=== PATIENT | male | born 1995 | race Caucasian/White ===

== ENCOUNTER 2016-10-06 19:14 | Emergency (ER) | payer OTHER ==
--- NOTE | 2016-10-06 19:20 | PDOC ---
History of Present Illness - General History Source: Patient Exam Limitations: No Limitations - History of Present Illness Initial Comments: 10/06/16 19:24 Patient is a 21 year old male with no pmhx who presents to the ED with left pinky finger injury. Patient states that he was playing basketball as another player his his left hand. He reports left pinky finger pain and difficulty bending the digit. He denies any head trauma, fall or LOC. PAST MEDICAL HISTORY: no significant history PAST SURGICAL HISTORY: no significant history FAMILY HISTORY: no pertinent history SOCIAL HISTORY: Pt lives with family and is employed. MEDICATIONS: reviewed ALLERGIES: As per nursing notes General: No fevers or chills, no weakness, no weight loss HEENT: No change in vision. No sore throat, No ear pain CardioVascular: No chest pain or shortness of breath Respiratory:No cough, or wheezing. Gastrointestinal: no nausea, vomiting, diarrhea or constipation, No rectal bleeding Genitourinary: No dysuria, hematuria, or frequency Musculoskeletal: +left pinky finger pain. No muscle pain or swelling Neurologic: No headache, vertigo, dizziness or loss of consciousness Psychiatric: nor depression Skin: No rashes or easy bruising Endocrine: no increased thirst or abnormal weight change Allergic: no skin or latex allergy All other systems reviewed and normal GENERAL: The patient is awake, alert, and fully oriented, in no acute distress. HEAD: Normal with no signs of trauma. EYES: Pupils equal, round and reactive to light, extraocular movements intact, sclera anicteric, conjunctiva clear. EXTREMITIES: (+)tenderness and swelling over the left pinky PIP joint with questionable deformity, patient is unable to flex the PIP joint secondary to pain and possible deformity, +Neurovascularly intact. NEUROLOGICAL: Normal speech, normal gait. PSYCH: Normal mood, normal affect. SKIN: Warm, Dry, normal turgor, no rashes or lesions noted. <Shelia Talamantes - Last Filed: 10/06/16 19:24> - General History Source: Patient Exam Limitations: No Limitations - History of Present Illness Initial Comments: 10/06/16 20:03 A portion of this note was documented by scribe services under my direction. I have reviewed the details of the note, within reason, and agree with the documentation. The case summary and management plan written by me. X-rays dislocation of PIP joint fifth finger Procedure note: Manual reduction dislocated PIP joint fifth finger left hand Finger was anesthetized via digital ring block using 1% lidocaine no epinephrine total cc approximately 4 mL Finger was relocated without difficulty Post reduction film shows good reduction of the dislocation Assessment and plan: This is a 21-year-old male comes in with injury to his left fifth finger status post injuring it while playing a basketball game. Patient had a dislocation of the PIP joint that was reduced manually post digital ring block. Splint was applied and patient was discharged. Patient was given referral to [facility] for follow-up. <Vasiliy Evangelista I - Last Filed: 10/06/16 20:08> - General Chief Complaint: Injury Stated Complaint: LEFT PINKY INJURY Time Seen by Provider: 10/06/16 19:20 Past History <Shelia Talamantes - Last Filed: 10/06/16 19:24> - Past Medical History Asthma: Yes - Psycho/Social/Smoking Cessation Hx Anxiety: No Suicidal Ideation: No Smoking History: Never smoked Have you smoked in the past 12 months: No Hx Alcohol Use: No Drug/Substance Use Hx: No Substance Use Type: None <Vasiliy Evangelista I - Last Filed: 10/06/16 20:08> - Past Medical History Allergies/Adverse Reactions: Allergies Allergy/AdvReac Type Severity Reaction Status Date / Time No Known Allergies Allergy Verified 10/06/16 19:19 Home Medications: Ambulatory Orders NK [No Known Home Medication] 10/06/16 *DC/Admit/Observation/Transfer - Attestations Scribe Attestion: 10/06/16 19:25 Documentation prepared by MAY Ruiz, acting as medical staff services manager for Vasiliy Evangelista MD. <Shelia Talamantes - Last Filed: 10/06/16 19:24> - Discharge Dispostion Admit: No <Vasiliy Evangelista I - Last Filed: 10/06/16 20:08> Diagnosis at time of Disposition: Dislocation of proximal interphalangeal joint of left little finger Qualifiers: Encounter type: initial encounter Qualified Code(s): S63.287A - Dislocation of proximal interphalangeal joint of left little finger, initial encounter - Discharge Dispostion Disposition: HOME Condition at time of disposition: Stable - Patient Instructions Additional Instructions: Tylenol or Motrin as needed for pain. Wear the splint until you are seen by an orthopedist. Make sure you keep the splint dry if he get it wet taken off dry with a hairdryer and put it back on. If you need an orthopedist call Dr. Rand at [phone] in the morning for an appointment. Return to the emergency department immediately with ANY new, persistent or worsening symptoms. Continue any medications as previously prescribed by your physician. You should follow up with your primary doctor as soon as possible regarding today's emergency department visit. . Please make sure your doctor reviews the results of your emergency evaluation. Thank you for coming to the Emergency Department today for your care. It was a pleasure to see you today. Please note that your evaluation is INCOMPLETE until you follow-up with your doctor.
[2016-10-06] MEDS ORDERED: IBUPROFEN 400 MG TABLET (FP) PO ONE ×2 (19:22→19:26)
[2016-10-06 19:27] VITALS: BP 126/80; PULSE 76; TEMP 98.5; BMI 29.8
[2016-10-06] MEDS ORDERED: LIDOCAINE HCL 1%, 10 MG/ML (20ML VIAL) ONE (19:47)
== END 2016-10-06 20:31 | disposition home or self-care (01) ==
LOC: FER 19:14
PROC: 2W3KX1Z Immobilization of Left Finger using Splint (ICD-10-PCS; principal; 2016-10-06)
DX: S63.287A Dislocation of proximal interphalangeal joint of left little finger, initial encounter (principal); W51.XXXA Accidental striking against or bumped into by another person, initial encounter; Y93.67 Activity, basketball; Y92.310 Basketball court as the place of occurrence of the external cause; J45.909 Unspecified asthma, uncomplicated
CPT/HCPCS: 29130; 73140-TC-LT; 99282-25

== ENCOUNTER 2017-07-06 01:08 | Emergency (ER) | payer SELFPAY ==
[2017-07-06 01:13] VITALS: BP 125/76; PULSE 62; TEMP 98.4; BMI 29.1
--- NOTE | 2017-07-06 01:19 | PDOC ---
History of Present Illness - General Chief Complaint: Injury Stated Complaint: HIT RIGHT ELBOW ON TOWEL RACK Time Seen by Provider: 07/06/17 01:14 History Source: Patient Exam Limitations: No Limitations - History of Present Illness Initial Comments: 07/06/17 01:16 This is a 18-year-old male who comes in complaining of a laceration to his right elbow. Last immunization was 8 years ago. Patient is otherwise healthy. PAST MEDICAL HISTORY: no significant history PAST SURGICAL HISTORY: no significant history FAMILY HISTORY: no pertinant history SOCIAL HISTORY: Pt lives with family and is employed. MEDICATIONS: reviewed ALLERGIES: As per nursing notes Review of Systems General: No fevers or chills, no weakness, no weight loss HEENT: No change in vision. No sore throat,. No ear pain CardioVascular: No chest pain or shortness of breath Respiratory:No cough, or wheezing. Gastrointestinal: no nausea, vomitting, diarrhea or constipation, No rectal bleeding Genitourinary: No dysuria, hematuria, or frequency Musculoskeletal: No joint or muscle pain or swelling Neurologic: No headache, vertigo, dizziness or loss of consciousness Psychiatric: nor depression Skin: No rashes or easy bruising Endocrine: no increased thirst or abnormal weight change Allergic: no skin or latex allergy All other systems reviewed and normal GENERAL: The patient is awake, alert, and fully oriented, in no acute distress. HEAD: Normal with no signs of trauma. EYES: Pupils equal, round and reactive to light, extraocular movements intact, sclera anicteric, conjunctiva clear. EXTREMITIES: There is approximately 3 mm superficial laceration over the right elbow posteriorly neurovascular is intact NEUROLOGICAL: Normal speech, normal gait. grossly intact PSYCH: Normal mood, normal affect. SKIN: Warm, Dry, normal turgor, no rashes or lesions noted. Procedure note Dermabond repair of laceration Laceration cleaned and then closed with Dermabond patient tolerated well Past History - Past Medical History Allergies/Adverse Reactions: Allergies Allergy/AdvReac Type Severity Reaction Status Date / Time No Known Allergies Allergy Verified 07/06/17 01:09 Home Medications: Ambulatory Orders Albuterol Sulfate Inhaler - [Ventolin Hfa Inhaler -] 1 - 2 inh PO QID 07/06/17 Asthma: Yes COPD: No - Suicide/Smoking/Psychosocial Hx Smoking History: Never smoked Have you smoked in the past 12 months: No Information on smoking cessation initiated: No Hx Alcohol Use: No Drug/Substance Use Hx: No Substance Use Type: None *Physical Exam - Vital Signs Last Vital Signs Temp Pulse Resp BP Pulse Ox 98.4 F 62 17 125/76 100 07/06/17 01:09 07/06/17 01:07/06/17 01:07/06/17 01:07/06/17 01:09 *DC/Admit/Observation/Transfer Diagnosis at time of Disposition: Laceration of right elbow Qualifiers: Encounter type: initial encounter Qualified Code(s): S51.011A - Laceration without foreign body of right elbow, initial encounter - Discharge Dispostion Disposition: HOME Condition at time of disposition: Stable Decision to Admit order: No - Referrals - Patient Instructions Printed Discharge Instructions: DI for Laceration Repair With Dermabond Additional Instructions: Read over and follow the Dermabond instructions no stim 4 days you keep it dry for the next 72 hours and do not use any petroleum placed ointments on it as it will cause the bleeding to come off early Return to the emergency department immediately with ANY new, persistent or worsening symptoms. Continue any medications as previously prescribed by your physician. You should follow up with your primary doctor as soon as possible regarding today's emergency department visit. . Please make sure your doctor reviews the results of your emergency evaluation. Thank you for coming to the Emergency Department today for your care. It was a pleasure to see you today. Please note that your evaluation is INCOMPLETE until you follow-up with your doctor. - Post Discharge Activity
== END 2017-07-06 01:21 | disposition home or self-care (01) ==
LOC: FER 01:08
PROC: 0HQDXZZ Repair Right Lower Arm Skin, External Approach (ICD-10-PCS; principal; 2017-07-06)
DX: S51.011A Laceration without foreign body of right elbow, initial encounter (principal); W22.8XXA Striking against or struck by other objects, initial encounter; Y93.89 Activity, other specified; Y92.9 Unspecified place or not applicable
CPT/HCPCS: 99281-25

== ENCOUNTER 2017-07-18 23:34 | Emergency (ER) | payer SELFPAY ==
[2017-07-18] MEDS ORDERED: ALBUTEROL SO4 2.5/IPRATROPIUM 0.5 INH SOL 3 ML VIAL.NEB. NEB ONE (23:38)
--- NOTE | 2017-07-18 23:38 | PDOC ---
History of Present Illness - General Chief Complaint: Asthma Stated Complaint: ASTHMA Time Seen by Provider: 07/18/17 23:38 - History of Present Illness Initial Comments: This 21-year-old man with a history of asthma, diagnosed 2 years ago, presents with a few day history of upper respiratory symptoms and nonproductive cough and one-day history of persistent bronchospasm. Patient states that he developed runny nose and sore throat followed by nonproductive cough 3 days ago. Yesterday, he noted some wheezing which was responsive to albuterol inhaler. Today, wheezing was persistent despite use of the inhaler and he took several Medrol 5 mg tablets from dose pack that was previously prescribed and not used. He continued to have wheezing and presents to the emergency room. Patient states that in the 2 years since his asthma was diagnosed, he has needed outpatient steroid treatment a few times. He has not needed to be hospitalized secondary to his asthma. Patient does not currently have PMD ( health insurance coverage begins 08/07/17) He currently does not have fever or productive cough. He does not smoke Past History - Past Medical History Allergies/Adverse Reactions: Allergies Allergy/AdvReac Type Severity Reaction Status Date / Time No Known Allergies Allergy Verified 07/18/17 23:41 Home Medications: Ambulatory Orders Albuterol Sulfate Inhaler - [Ventolin Hfa Inhaler -] 1 - 2 inh PO QID 07/06/17 Prednisone 20 mg PO DAILY #8 tablet 07/19/17 Asthma: Yes COPD: No - Suicide/Smoking/Psychosocial Hx Smoking History: Never smoked Have you smoked in the past 12 months: No Hx Alcohol Use: No Drug/Substance Use Hx: No Substance Use Type: None Review of Systems - Review of Systems Able to Perform ROS?: Yes Comments:: 12 point review of systems is negative except for what is noted in the history of present illness *Physical Exam - Physical Exam Comments: GENERAL: Young adult male, alert and oriented 3, speaking in full sentences, in mild distress secondary to wheezing HEAD: Normal with no signs of trauma. EYES: PERRLA, EOMI, sclera anicteric, conjunctiva clear. ENT: Ears normal, nares patent, oropharynx clear without exudates. Dry mucous membranes. NECK: Normal range of motion, supple without lymphadenopathy, JVD, or masses. LUNGS: Bilateral expiratory wheezing HEART:Regular rate and rhythm, normal S1 and S2 without murmur, rub or gallop. ABDOMEN:.normal bowel sounds No guarding,tenderness or rebound.No masses No distention. EXTREMITIES: Normal range of motion, no edema. No clubbing or cyanosis. No erythema, or tenderness. NEUROLOGICAL: Cranial nerves II through XII grossly intact. Normal speech. No focal neurological deficits. MUSCULOSKELETAL: Back non-tender to palpation, no CVA tenderness SKIN: Warm, Dry, normal turgor, no rashes or lesions noted. Progress Note - Progress Note Progress Note: 21-year-old man with a few year history of asthma presents with wheezing that had been resistant to albuterol inhaler therapy and several tablets of Medrol 5 mg today. Patient is speaking in full sentences and has pulse oximetry of 99% on room air. However, he has bilateral expiratory wheezes on exam. Today's episode appears to be secondary to a brief viral respiratory illness that began a few days ago. Patient received DuoNeb nebulizer treatment. Repeat examination shows clear lung alford with excellent air exchange. Patient will be given prednisone 20 mg daily for the next 4 days (Medrol that he had taken home counts for the first day of 5 day course) His albuterol inhaler is nearly full; no refill will be issued since patient states that his health insurance does not take effect until 2 weeks from now and he wishes to wait until he has coverage before he purchases new inhaler Follow-up will be with [facility] practice in [place] the next 2 weeks until patient has health insurance coverage and he will pick a PMD for follow-up. In while, he can come to the emergency room at any time if he has persistent severe bronchospasm, shortness of breath, severe cough or high fever *DC/Admit/Observation/Transfer Diagnosis at time of Disposition: Asthmatic bronchitis Qualifiers: Asthma severity: mild Asthma persistence: intermittent Asthma complication type : uncomplicated Qualified Code(s): J45.20 - Mild intermittent asthma, uncomplicated - Discharge Dispostion Disposition: HOME Condition at time of disposition: Stable - Prescriptions Prescriptions: Prednisone 20 mg PO DAILY #8 tablet - Referrals Referrals: [facility] [Provider Group] - Patient Instructions Printed Discharge Instructions: Asthma -- Adult Additional Instructions: Prednisone 20 mg daily for 4 more days; take with food Albuterol inhaler as needed up to 4 times a day Return to ER if you have persistent wheezing/shortness of breath/severe cough Follow-up within the next week to [facility] as discussed - Post Discharge Activity
[2017-07-18 23:48] VITALS: BP 129/72; PULSE 80; TEMP 98.1; BMI 29.9
== END 2017-07-19 01:13 | disposition home or self-care (01) ==
LOC: FER 23:34
PROC: 3E0F7GC Introduction of Other Therapeutic Substance into Respiratory Tract, Via Natural or Artificial Opening (ICD-10-PCS; principal; 2017-07-18)
DX: J45.20 Mild intermittent asthma, uncomplicated (principal)
CPT/HCPCS: 99281-25; J7620